=== PATIENT | female | born 1950 | race Caucasian/White ===

== ENCOUNTER → 2017-09-13 | Outpatient (CLI) | payer MEDICARE, OTHER ==
[~2017-09-13] MED LIST: ACET500 PO; ALPR.25 PO; ASPI325EC PO; BIOTIN PO; CALCIUM WITH V1 EACH PO; CYAN500 PO; FOLI400 PO; OXYC5 PO; PLEXUS PO; [UNRECOGNIZED DRUG - OTHER] PO
[2017-09-13 16:40] LABS: Source, Urine Clean Catch
[2017-09-13 17:26] LABS: Blood, Urine 1+ (Neg); Glucose Qualitative, Urine Neg (Neg); Ketones, Urine Neg (Neg); Leukocyte Esterase, Urine 2+ (Neg); Nitrite, Urine Pos (Neg); Protein, Urine Neg (Neg); Urobilinogen, Urine 1+ (Normal)
[2017-09-13 17:54] LABS: Appearance, Urine Clear (Clear); Bilirubin, Urine 1+ (Neg); Color, Urine Yellow (P-Yellow)
[2017-09-13 17:55] LABS: Bacteria Mod /hpf; Red Blood Cells, Urine 0-2 /hpf (0-2); Squamous Epithelial Cells Rare /hpf (Few)
== END | disposition home or self-care (01) ==
LOC: OLS 16:39
PROVIDERS: Internal Medicine
DX: R30.0 Dysuria (principal)
CPT/HCPCS: 81001; 87077; 87086; 87186

== ENCOUNTER 2017-12-01 14:46 | Inpatient (IN) | payer MEDICARE, OTHER ==
[~2017-12-01] VITALS: Ht 162.6 cm; Wt 61.7 kg
[2017-12-21] MEDS ORDERED: CALCIUM WITH V1 EACH PO (14:20)
[2017-12-21] MEDS ORDERED: PLEXUS PO (14:20)
[2017-12-21] MEDS ORDERED: FOLI400 PO (14:21)
[2017-12-21] MEDS ORDERED: CYAN500 PO (14:21)
[2017-12-21] MEDS ORDERED: [UNRECOGNIZED DRUG - OTHER] PO (14:22)
[2017-12-21] MEDS ORDERED: BIOTIN PO (14:22)
[2018-01-10] MEDS ORDERED: ALPR.25 PO (06:31)
[2018-01-10] MEDS ORDERED: ASPI325EC PO (14:41)
[2018-01-10] MEDS ORDERED: OXYC5 PO (14:41)
[2018-01-10] MEDS ORDERED: ACET500 PO (14:41)
[2018-01-11 04:42] LABS: BASOPHILS ABSOLUTE AUTO 0.01 K/mm3 (0.00-0.23); BASOPHILS PERCENT AUTO 0 % (0-2); EOSINOPHILS ABSOLUTE AUTO 0.01 K/mm3 (0.00-0.68); EOSINOPHILS PERCENT AUTO 0 % (0-6); Hematocrit 31.7 % (33.0-51.0); Hemoglobin 10.7 g/dL (11.5-16.0); IMMATURE GRAN ABSOLUTE AUTO 0.03 K/mm3 (0.00-0.10); IMMATURE GRAN PERCENT AUTO 0 % (0-1); LYMPHOCYTES ABSOLUTE AUTO 0.67 K/mm3 (0.84-5.20); LYMPHOCYTES PERCENT AUTO 8 % (21-46); MONOCYTES PERCENT AUTO 9 % (4-13); Mean Corpuscular HGB 34.6 pg (26.0-34.0); Mean Corpuscular HGB Conc 33.8 g/dL (31.5-36.5); Mean Corpuscular Volume 103 fL (80-100); Mean Platelet Volume 10.8 fL (9.1-12.4); NEUTROPHILS PERCENT AUTO 83 % (41-73); Platelet Count 156 K/mm3 (150-400); RDW Coefficient Variation 12.5 % (11.7-14.2); RDW Standard Deviation 46.3 fL (35.1-46.3); Red Blood Cell Count 3.09 M/mm3 (3.80-5.20); White Blood Cell Count 8.12 K/mm3 (4.00-11.30)
[2018-01-11 05:11] LABS: Anion Gap 6 mmol/L (6-16); Blood Urea Nitrogen 8 mg/dL (8-24); Bun/Creatinine Ratio 10.8 (12.0-20.0); CO2, Blood 27 mmol/L (21-32); Calcium, Blood 8.4 mg/dL (8.5-10.1); Chloride, Blood 105 mmol/L (98-108); Creatinine, Blood 0.74 mg/dL (0.40-1.00); Glomerular Filtration Rate >60 (60-); Glucose, Blood 115 mg/dL (70-99); Potassium, Blood 4.1 mmol/L (3.5-5.5); Sodium, Blood 138 mmol/L (136-145)
== END 2018-01-11 10:21 | disposition home or self-care (01) | DRG 470 ==
LOC: SURS 01-10 06:03 → PRE IP 01-10 07:30 → SURS 01-10 11:07
PROVIDERS: Orthopaedic Surgery
PROC: BQ13ZZZ Fluoroscopy of Right Femur (ICD-10-PCS; 2018-01-10)
PROC: 0SR904A Replacement of Right Hip Joint with Ceramic on Polyethylene Synthetic Substitute, Uncemented, Open Approach (ICD-10-PCS; principal; 2018-01-10 07:30)
DX: M16.11 Unilateral primary osteoarthritis, right hip (principal); Z88.5 Allergy status to narcotic agent; Z88.8 Allergy status to other drugs, medicaments and biological substances; Z79.899 Other long term (current) drug therapy; Z87.891 Personal history of nicotine dependence
CPT/HCPCS: 36415; 72170; 80048; 83735; 85025; 86850; 86900; 86901; 97110; 97116; 97162; 97530; C1776; G8978; G8979; J0171; J0690; J0735; J1170; J1885; J2250; J2405; J2550; J2710; J2795; J3010; J7120

== ENCOUNTER → 2018-05-05 | Outpatient (CLI) | payer MEDICARE, OTHER | END | disposition home or self-care (01) | LOC: PLD 14:53 → LAB SHORT 14:53 | DX: D48.5 Neoplasm of uncertain behavior of skin (principal) | CPT/HCPCS: 88305 ==

== ENCOUNTER → 2019-11-13 | Outpatient (CLI) | payer MEDICARE, OTHER | END | disposition home or self-care (01) | LOC: PLD 11:04 → LAB SHORT 11:04 | DX: D48.5 Neoplasm of uncertain behavior of skin (principal) | CPT/HCPCS: 88305 ==

== ENCOUNTER 2021-03-13 14:43 | Emergency (ER) | payer MEDICARE, OTHER ==
[~2021-03-13] VITALS: Ht 162.6 cm; Wt 56.7 kg
[2021-03-13 15:05] LABS: BASOPHILS ABSOLUTE AUTO 0.05 K/mm3 (0.00-0.23); BASOPHILS PERCENT AUTO 1 % (0-2); EOSINOPHILS ABSOLUTE AUTO 0.16 K/mm3 (0.00-0.68); EOSINOPHILS PERCENT AUTO 3 % (0-6); Hematocrit 43.2 % (33.0-51.0); Hemoglobin 14.5 g/dL (11.5-16.0); IMMATURE GRAN ABSOLUTE AUTO 0.02 K/mm3 (0.00-0.10); IMMATURE GRAN PERCENT AUTO 0 % (0-1); LYMPHOCYTES ABSOLUTE AUTO 1.58 K/mm3 (0.84-5.20); LYMPHOCYTES PERCENT AUTO 25 % (21-46); MONOCYTES ABSOLUTE AUTO 0.53 K/mm3 (0.16-1.47); MONOCYTES PERCENT AUTO 8 % (4-13); Mean Corpuscular HGB 33.2 pg (26.0-34.0); Mean Corpuscular HGB Conc 33.6 g/dL (31.5-36.5); Mean Corpuscular Volume 99 fL (80-100); Mean Platelet Volume 10.4 fL (9.1-12.4); NEUTROPHILS ABSOLUTE AUTO 3.95 K/mm3 (1.96-9.15); NEUTROPHILS PERCENT AUTO 63 % (41-73); Platelet Count 182 K/mm3 (150-400); RDW Coefficient Variation 13.2 % (11.7-14.2); RDW Standard Deviation 48.3 fL (35.1-46.3); Red Blood Cell Count 4.37 M/mm3 (3.80-5.20); White Blood Cell Count 6.29 K/mm3 (4.00-11.30)
[2021-03-13 15:28] LABS: Alanine Aminotransfer (ALT/SGP 30 U/L (12-78); Albumin, Blood 4.4 g/dL (3.4-5.0); Albumin/Globulin Ratio 1.4 (0.8-1.8); Alk Phos 84 U/L (50-136); Anion Gap 4 mmol/L (6-16); Aspartate Aminotrans (AST/SGOT 27 U/L (12-37); Bilirubin, Total 0.7 mg/dL (0.1-1.0); Blood Urea Nitrogen 14 mg/dL (8-24); Bun/Creatinine Ratio 17.7 (12.0-20.0); CO2, Blood 28 mmol/L (21-32); Calcium, Blood 9.3 mg/dL (8.5-10.1); Chloride, Blood 105 mmol/L (98-108); Creatinine, Blood 0.79 mg/dL (0.40-1.00); Globulin, Blood 3.2 g/dL (2.2-4.0); Glomerular Filtration Rate >60 (60-); Glucose, Blood 94 mg/dL (70-99); Sodium, Blood 137 mmol/L (136-145); Total Protein, Blood 7.6 g/dL (6.4-8.2); Troponin I <0.015 ng/mL (0.000-0.040)
== END 2021-03-13 16:45 | disposition home or self-care (01) ==
LOC: ER 14:43
PROVIDERS: Physician Assistant
DX: R10.9 Unspecified abdominal pain (principal); Z88.5 Allergy status to narcotic agent; Z79.82 Long term (current) use of aspirin; Z79.899 Other long term (current) drug therapy
CPT/HCPCS: 36415; 71046; 80053; 83880; 84484; 85025; 93005; 93010; 99285-25

== ENCOUNTER → 2023-01-13 | Outpatient (CLI) | payer MEDICARE, OTHER ==
[2023-01-13 12:30] LABS: Source, Urine Clean Catch
[2023-01-13 12:40] LABS: Appearance, Urine Clear (Clear); Bilirubin, Urine Neg (Neg); Blood, Urine Neg (Neg); Color, Urine Yellow (P-Yellow); Glucose Qualitative, Urine Neg (Neg); Ketones, Urine Neg (Neg); Leukocyte Esterase, Urine 2+ (Neg); Nitrite, Urine Neg (Neg); Protein, Urine Neg (Neg); Specific Gravity, Urine 1.005 (1.003-1.022); Urobilinogen, Urine NORM (Normal)
[2023-01-13 12:53] LABS: Bacteria Mod /hpf; Red Blood Cells, Urine Not Seen /hpf (0-2); Squamous Epithelial Cells Few /hpf (Few)
== END | disposition home or self-care (01) ==
LOC: LAB SHORT 11:27 → LAB 11:27
PROVIDERS: Internal Medicine
DX: R30.0 Dysuria (principal)
CPT/HCPCS: 81001; 87077; 87086; 87186

== ENCOUNTER 2023-10-19 09:21 | Day surgery (SDC) | payer OTHER ==
[~2023-10-19] VITALS: Ht 162.6 cm; Wt 55.6 kg
[~2023-10-19 09:21] MED LIST changes: +Balanced Salt Epinephrine Irrigation Solution 500 mL IR SCH; +FentaNYL Citrate 50 MCG/ML 2 ML Injection ONE; +Lidocaine HCl/Pf 1% 5 ML VIAL XX SCH; +Midazolam HCl 1MG / ML 2ML Vial ONE; +Moxifloxacin HCL 0.5 MG/0.1 ML 0.4MLSYR LEFTEYE SCH; +NS 500 ML IV ONE; +PHENYLEPHRINE\\TROPICAMIDE\\TETRACAINE OPHTHALMIC DILATING SOLN LEFTEYE PRN; +Povidone-Iodine 450 DROP/30 ML Solution LEFTEYE SCH; +Povidone-Iodine 450 DROP/30 ML Solution ONE
[2023-10-19] MEDS ORDERED: ALBU90OI INH (09:30)
[2023-10-19] MEDS ORDERED: NS 500 ML IV ONE (09:34)
--- NOTE | 2023-10-19 09:35 | NUR ---
10/19/23 0935 [place] CALL LIGHT WITHIN REACH. TETRACAINE IN LEFT EYE AT 0932 AND PLEDGETT IN AT 0933
[2023-10-19] MEDS ORDERED: Tetracaine HCl 0.5% Opth Soln 15 ml LEFTEYE ONE (10:13)
[2023-10-19 10:36] VITALS: BP 114/78
--- NOTE | 2023-10-19 11:03 | NUR ---
10/19/23 1103 Heidy Landry 1055: PATIENT NOTED TO DARK REDNESS TO INNER EYE OPERATIVE EYE, WILL CONSULT DR STARKS. PATIENT REPORTS GRAIN OF SAND FEELING BUT NO PAIN TO EYE.
== END 2023-10-19 11:07 | disposition home or self-care (01) ==
LOC: ORSCSDS 09:21
PROVIDERS: Student in an Organized Health Care Education/Training Program
PROC: 08RK3JZ Replacement of Left Lens with Synthetic Substitute, Percutaneous Approach (ICD-10-PCS; principal; 2023-10-19 10:30)
DX: H25.13 Age-related nuclear cataract, bilateral (principal); I10 Essential (primary) hypertension; E03.9 Hypothyroidism, unspecified
CPT/HCPCS: J2250; J3010; J7040; V2632